=== PATIENT | male | born 1985 | race Caucasian/White ===

== ENCOUNTER 2020-03-17 06:43 | Emergency (ER) | payer MEDICAID ==
[~2020-03-17] VITALS: Ht 157.5 cm; Wt 82.5 kg
[~2020-03-17 06:43] MED LIST: GABA600T13 PO; HALO5TAB PO; IBUP-1985 PO; LORA0.5T PO; MIRT15TA PO; PRAZ2CAP2 PO; RISP0.5T3 PO
[2020-03-17 07:03] VITALS: BP 121/86
[2020-03-17] MEDS ORDERED: ketorolac trometh inj. 60 MG/2 ML VIAL IM ONE (07:05)
== END 2020-03-17 08:00 | disposition home or self-care (01) ==
LOC: ER 06:43
DX: S93.492A Sprain of other ligament of left ankle, initial encounter (principal); S70.02XA Contusion of left hip, initial encounter; J45.909 Unspecified asthma, uncomplicated; G89.29 Other chronic pain; F31.9 Bipolar disorder, unspecified; F20.9 Schizophrenia, unspecified; F17.200 Nicotine dependence, unspecified, uncomplicated; F12.90 Cannabis use, unspecified, uncomplicated; F15.90 Other stimulant use, unspecified, uncomplicated; Z98.890 Other specified postprocedural states; Z72.89 Other problems related to lifestyle; Z79.899 Other long term (current) drug therapy; M54.5 Low back pain; W18.39XA Other fall on same level, initial encounter; Y93.89 Activity, other specified; Y92.89 Other specified places as the place of occurrence of the external cause; Y99.8 Other external cause status
CPT/HCPCS: 73502; 73600; 96372; 99284; J1885

== ENCOUNTER 2025-03-04 10:59 | Emergency (ER) | payer MEDICAID ==
[~2025-03-04] VITALS: Ht 160 cm; Wt 75.0 kg
[~2025-03-04 10:59] MED LIST changes: +GABA-1405 PO; -GABA600T13 PO; +MIRT-142 PO; -MIRT15TA PO; -RISP0.5T3 PO; +RISP0.5T80 PO
[2025-03-04 11:19] VITALS: TEMP 98.7
--- NOTE | 2025-03-04 11:23 | Physician Documentation ---
History of Present Illness ~ Chief Complaint: Cough Stated Complaint: COUGH Time Seen by MD: 14:22 Primary Medical Doctor: n/a VICTORIANO This is a 40 year old male history of asthma who presents by EMS with three days of productive cough. patient reports sputum is green yellow. Patient states his symptoms started about four days ago. Patient admits to extensive smoking history and history of asthma and states he needs a new rescue inhaler or albuterol inhaler. Patient states he also has nasal congestion and sore throat and nasal discharge but denies any significant fevers or chills or body aches. He denies any chest pain or shortness of breath or abdominal pain or nausea, vomiting, diarrhea. Patient has no other concern or complaint at this time. Medication Reconciliation Allergies: Coded Allergies: No Known Allergies (Unverified , 07/13/14) Scheduled Gabapentin (Gabapentin), 1 TABLET PO DAILY, (Reported) Haloperidol (Haloperidol), 2 TAB PO DAILY, (Reported) Mirtazapine (Remeron), 1 TABLET PO HS, (Reported) Prazosin Hcl (Prazosin Hcl), 1 CAP PO HS, (Reported) Risperidone (Risperidone), 1 TABLET PO HS, (Reported) Scheduled PRN Ibuprofen (Ibuprofen), 600 MG PO TID PRN for pain, (Reported) Lorazepam* (Ativan*), 1 TAB PO TID PRN PRN for for anxiety/agitation, (Reported) Past Medical History Past Medical History: Asthma, Chronic Pain, Chronic Back Pain, Bipolar, Schizophrenia Past Surgical History: orthopedic surgeries Alcohol Use: Sober Drug Use: marijuana, methamphetamine Lives In: Home Review of Systems Constitutional: Denies: chills, fever, weakness Eyes: Denies: pain, blurred vision ENT: Denies: ear pain, nose pain, throat pain, mouth pain Respiratory: Denies: cough, shortness of breath Cardiovascular: Denies: chest pain, palpitations Gastrointestinal: Denies: abdominal pain, nausea, vomiting Genitourinary: Denies: burning, dysuria Male Genitalia: Denies: penile discharge, testicular pain Neurological: Denies: headache, dizziness Musculoskeletal: Denies: pain, swelling Integumentary: Denies: rash, lesions Allergic/Immunologic: Denies: hives, itching Hematologic/Lymphatic: Denies: no symptoms reported Psychiatric: Denies: depression, anxiety Physical Exam Vital Signs: Temperature: 98.7, Source: Temporal, Heart Rate: 106, Respiratory Rate: 20, BP: 134/89, Pulse Oximetry: 95, Weight: 75.000 Oxygen Flow Rate: 0 Physical Exam General: Awake and Alert, no acute distress. HEENT: Patient on exam does have erythema of the oropharynx with cobblestoning but no exudative tonsils. Conjunctiva pink, Sclera clear, Mucus Membranes moist. Neck: Supple without masses and tenderness. Resp: Unlabored. Lungs clear to auscultation bilaterally. I do not appreciate any rales, rhonchi, coarse breath sounds or wheezes. Heart: Regular Rate and rhythm, normal S1 and S2 without murmur, rub or gallop. Abdomen: Soft and non tender no organomegaly Extremities: No cyanosis,clubbing or edema. Skin: Warm and Dry. Progress Results/Orders Results/Orders Vital Signs 03/04/25 03/04/25 03/04/25 11:19 13:40 13:45 Temp 98.7 Pulse 106 100 Resp 20 18 18 B/P (MAP) 134/89 136/86 (103) Pulse Ox 95 98 O2 Flow Rate 0 0 EKG/XRAY/CT/US/VASC/MRI Chest X-Ray : Additional Comments Chest x-ray interpreted by myself today shows no large infiltrate, no large effusion, normal mediastinum. DIAGNOSTIC RADIOLOGY Patient: LISANDRO CHAVES II Medical Record: [id number] [facility] : 1985, Age: 40 Sex: Male Location: ER Patient Status: REG ER Service Date/Time: 03/04/251121 Ordering Physician: EDMOND LORA Exam: CHEST,TWO VIEWS EXAM: DI CHEST,TWO VIEWS CLINICAL HISTORY: COUGH COMPARISON: None TECHNIQUE: Frontal and lateral view of the chest was obtained FINDINGS: Lines and Tubes: None Lungs: Low lung volumes. Calcified nodule projects over the left lung which may represent calcified granuloma. Pleura: No effusion. No pneumothorax. Cardiomediastinal contours: Unremarkable Bones: No acute osseous abnormality. IMPRESSION: No acute cardiopulmonary disease. Electronically Signed by:JESSICA JOHN MD Date & Time: 03/04/25 1145 Dictated by: JESSICA JOHN MD Dictation date and time: 03/04/25 1136 Primary Care Provider: NO PRIMARY CARE PROVIDER cc: EDMOND LORA ~ Medical Decision Making Findings This is a 40 year old male history of asthma who presents by EMS with three days of productive cough. patient reports sputum is green yellow. Patient states his symptoms started about four days ago. Patient admits to extensive smoking history and history of asthma and states he needs a new rescue inhaler or albuterol inhaler. Patient states he also has nasal congestion and sore throat and nasal discharge but denies any significant fevers or chills or body aches. He denies any chest pain or shortness of breath or abdominal pain or nausea, vomiting, diarrhea. Patient has no other concern or complaint at this time. Chest x-ray showed no sign of pneumonia. Patient was given prescriptions for ibuprofen and Tylenol and cough medicine Tessalon Perles. Patient will follow up with primary care in 3-5 days if no better as needed sooner. Return to ED with any worsening, concerning or changing symptoms. Patient also given refill of albuterol inhaler. Departure Disposition: HOME / SELF CARE / HOMELESS Impression: Primary Impression: Cough Qualified Codes: R05.1 - Acute cough Additional Impression: URI (upper respiratory infection) Qualified Codes: J06.9 - Acute upper respiratory infection, unspecified Condition: Stable Discharge Instructions: Cough, Adult Additional Instructions: Chest x-ray showed no sign of pneumonia. Patient was given prescriptions for ibuprofen and Tylenol and cough medicine Tessalon Perles. Patient will follow up with primary care in 3-5 days if no better as needed sooner. Return to ED with any worsening, concerning or changing symptoms. Patient also given refill of albuterol inhaler. Referrals: NO PRIMARY CARE PROVIDER (PCP) Prescriptions albuterol inhaler (Pro-Air Inhaler) 8.5 Gm Inhaler 1-2 PUFFS PO Q4H PRN for shortness of breath, #1 INH Prov: NEGIN CARR 03/04/25 Benzonatate* (Benzonatate*) 100 Mg Capsule 1 CAP PO Q8H for cough for 10 Days, #30 CAP Prov: NEGIN CARR 03/04/25 Acetaminophen (Tylenol Extra Strength) 500 Mg Tablet 2 TAB PO Q6H PRN PRN for pain or fever for 7 Days, #56 TAB Prov: NEGIN CARR 03/04/25 Ibuprofen (Ibuprofen) 800 Mg Tablet 1 TAB PO Q8H for pain for 10 Days, #30 TAB 0 Refills Prov: NEGIN CARR 03/04/25 Signature Scribe Signature: No scribe Attestation: No scribe EDMOND LORA [facility] Mar 04, 2025 11:23 NEGIN CARR Mar 04, 2025 15:57
--- NOTE | 2025-03-04 11:47 | RADIOLOGY REPORT ---
EXAM: DI CHEST,TWO VIEWS CLINICAL HISTORY: COUGH COMPARISON: None TECHNIQUE: Frontal and lateral view of the chest was obtained FINDINGS: Lines and Tubes: None Lungs: Low lung volumes. Calcified nodule projects over the left lung which may represent calcified granuloma. Pleura: No effusion. No pneumothorax. Cardiomediastinal contours: Unremarkable Bones: No acute osseous abnormality. IMPRESSION: No acute cardiopulmonary disease.
[2025-03-04 13:40] VITALS: BP 136/86; PULSE 100; O2SAT 98
[2025-03-04 13:45] VITALS: RESP 18
[2025-03-04] MEDS ORDERED: ACET-1025 PO (16:15)
[2025-03-04] MEDS ORDERED: IBUP-1986 PO (16:15)
[2025-03-04] MEDS ORDERED: ALBU8HFA PO (16:15)
[2025-03-04] MEDS ORDERED: BENZ-38 PO (16:15)
== END 2025-03-04 16:28 | disposition home or self-care (01) ==
LOC: ER 11:00
DX: J06.9 Acute upper respiratory infection, unspecified (principal); F20.9 Schizophrenia, unspecified; F31.9 Bipolar disorder, unspecified; J45.909 Unspecified asthma, uncomplicated; F12.90 Cannabis use, unspecified, uncomplicated; F15.90 Other stimulant use, unspecified, uncomplicated; Z87.891 Personal history of nicotine dependence
CPT/HCPCS: 71046; 99283

== ENCOUNTER 2025-07-01 09:42 | Emergency (ER) | payer MEDICAID ==
[~2025-07-01] VITALS: Ht 157.5 cm; Wt 79.2 kg
[~2025-07-01 09:42] MED LIST changes: -IBUP-1985 PO; +IBUP-1986 PO; +IBUP600T52 PO
[2025-07-01 09:50] VITALS: TEMP 98.3
[2025-07-01 10:34] LABS: MEAN PLATELET VOLUME 7.9 FL (7.4-10.4); RED CELL DISTRIBUTION WIDTH 14.5 % (11.5-14.5)
[2025-07-01 10:38] LABS: LEUKOCYTE ESTERASE ,URINE NEGATIVE (Neg); NITRITES, URINE NEGATIVE (Neg); OCCULT BLOOD,URINE NEGATIVE (Neg)
[2025-07-01 10:39] LABS: UA COLLECTION TYPE CLN CATCH MIDSTREAM
[2025-07-01 10:46] LABS: CREATININE 0.76 MG/DL (0.60-1.10); TOTAL CARBON DIOXIDE 31.1 MMOL/L (24-32); eCRCL 102 ML/MIN; eGFR > 90 ML/MIN
--- NOTE | 2025-07-01 10:54 | Physician Documentation ---
History of Present Illness General Chief Complaint: Abdominal Pain w/vomiting Stated Complaint: STOMACH PAIN Time Seen by MD: 10:53 OK to notify your PCP?: No Primary Medical Doctor: n/a Source: patient, RN notes reviewed Mode of Arrival: POV Exam Limitations: no limitations History of Present Illness Initial Comments 40-year-old male presents complaining of increase of his chronic vomiting. Patient reports he had a hernia surgery last year and ever since has had vomiting almost daily. We will last few days vomiting has increased somewhat, which he relates getting over a sinus infection. he is requesting medication for nausea. He denies any significant abdominal pain, fever, or bloody/black stool. Medication Reconciliation Allergies: Coded Allergies: No Known Allergies (Unverified , 07/01/25) Scheduled Gabapentin (Gabapentin), 1 TABLET PO DAILY, (Reported) Haloperidol (Haloperidol), 2 TAB PO DAILY, (Reported) Ibuprofen (Ibuprofen), 1 TAB PO Q8H Ibuprofen (Ibuprofen), 1 TAB PO Q8H Ibuprofen (Ibuprofen), 1 TAB PO Q8H Mirtazapine (Remeron), 1 TABLET PO HS, (Reported) Prazosin Hcl (Prazosin Hcl), 1 CAP PO HS, (Reported) Risperidone (Risperidone), 1 TABLET PO HS, (Reported) Scheduled PRN Ibuprofen (Ibuprofen), 600 MG PO TID PRN for pain, (Reported) Lorazepam* (Ativan*), 1 TAB PO TID PRN PRN for for anxiety/agitation, (Reported) ONDANSETRON ODT 4mg tablet (Ondansetron Odt), 1 TABLET PO Q6H PRN for nausea/vomiting Past Medical History Past Medical History: Asthma, Chronic Pain, Chronic Back Pain, Bipolar, Schizophrenia Past Surgical History: orthopedic surgeries Other Past Surgical History: Hernia surgery Alcohol Use: Sober Drug Use: marijuana, methamphetamine Lives In: Home Review of Systems All Other Systems at this time: Reviewed and Negative ROS Vomiting as well as other positive symptoms as stated above, otherwise negative Physical Exam Physical Exam Vital Signs: RN Vital Signs have been reviewed: Yes, Temperature: 98.3, Source: Oral, Heart Rate: 108, Respiratory Rate: 18, BP: 131/94, Pulse Oximetry: 96, Weight: 79.200 Oxygen Flow Rate: 0 Pulse Oximetry Reflects: adequate oxygenation Physical Exam VITALS: Reviewed and as above. GENERAL: Alert, no apparent distress. HEENT: Normocephalic, atraumatic, PERRL, EOMI, dry mucosa, no erythema RESPIRATORY: Lungs clear, normal breath sounds, no respiratory distress. CHEST: No accessory muscle use, no retractions CV: Regular rate, rhythm, no edema, no murmur, No: JVD GI: Slight epigastric tenderness. Soft, bowels sounds present, no rebound, guarding, or rigidity MUSCULOSKELETAL No deformities, no edema SKIN: Warm and dry, no rash NEURO: Oriented x4, No motor or sensory deficit PSYCH: Normal mood and affect, no agitation Progress Results/Orders Reviewed/noted all lab results: Yes Results/Orders Completed Orders - OHLFS,YINKA Caldera MD Urinalysis, Cult If Indicated (07/01/25 09:55) Cbc/Diff (07/01/25 09:55) BMP (07/01/25 09:55) Lipase (07/01/25 09:55) CMP (07/01/25 09:55) Ondansetron Disint. Tablet (Zofran Odt T (07/01/25 11:20) Vital Signs 07/01/25 07/01/25 09:50 11:13 Temp 98.3 Pulse 108 85 Resp 18 17 B/P (MAP) 131/94 157/100 (119) Pulse Ox 96 99 O2 Flow Rate 0 Laboratory Tests Test 07/01/25 10:00 07/01/25 10:20 07/01/25 10:26 Urine Specimen Description Cln catch midstream Urine Color Yellow Urine Clarity Clear Urine pH 6.5 Urine Specific [place] 1.015 Urine Protein Negative Urine Glucose (UA) Negative Urine Ketones Negative Urine Occult Blood Negative Urine Nitrite Negative Urine Bilirubin Negative Urine Urobilinogen 0.2 Urine Leukocyte Esterase Negative Urine Culture Indicated Not ind Volume Urine Centrifuged 10 ml Urine Comment White Blood Count 6.1 Red Blood Count 5.03 Hemoglobin 16.1 Hematocrit 46.7 Mean Corpuscular Volume 92.8 Mean Corpuscular Hemoglobin 32.0 H Mean Corpuscular Hemoglobin Concent 34.5 Red Cell Distribution Width 14.5 Platelet Count 282 Mean Platelet Volume 7.9 Neutrophils (%) (Auto) 65.8 Lymphocytes (%) (Auto) 23.1 Monocytes (%) (Auto) 8.7 Eosinophils (%) (Auto) 1.4 Basophils (%) (Auto) 1.0 Neutrophils # (Auto) 4.0 Lymphocytes # (Auto) 1.4 Monocytes # (Auto) 0.5 Eosinophils # (Auto) 0.1 Basophils # (Auto) 0.1 CBC Comment Sodium Level 136 Potassium Level 4.1 Chloride Level 100 Carbon Dioxide Level 31.1 Anion Gap 5 L Blood Urea Nitrogen 14 Creatinine 0.76 Estimated GFR/1.73 m2 > 90 BUN/Creatinine Ratio 18.4 Glucose Level 92 Calcium Level 8.6 Total Bilirubin 0.4 Aspartate Amino Transf (AST/SGOT) 29 Alanine Aminotransferase (ALT/SGPT) 44 Alkaline Phosphatase 96 Total Protein 7.3 Albumin 3.8 Globulin 3.5 Albumin/Globulin Ratio 1.1 Lipase 24 Chemistry Comments Medical Decision Making Additional information obtaine: old records (Seen in February for cough) Findings 40-year-old male with nausea vomiting and abdominal pain patient was treated with a cocktail of medications and IV fluids with improvement of his symptoms. Prior hospitalizations has been reviewed. The pulse the patient's pulse oximetry was interpreted as normal and adequate. The patient's cardiac cath rn was interpreted as a sinus rhythm. The patient had improvement after treatment the patient will be discharged and advised to return for worsening of the symptoms Differential Diagnosis Gastritis cholecystitis enteritis peptic ulcer disease Departure Time of Disposition: 11:21 Disposition: 01 HOME / SELF CARE / HOMELESS Impression: Primary Impression: Nausea & vomiting Qualified Codes: R11.2 - Nausea with vomiting, unspecified Condition: Stable Discharge Instructions: Nausea and Vomiting, Adult, [id number] Additional Instructions: Zofran as prescribed. Follow up with your regular doctor and surgeon. Return to the ER for other concerns. Prescriptions ONDANSETRON ODT 4mg tablet (ONDANSETRON ODT) 4 Mg Tab.rapdis 1 TABLET PO Q6H PRN for nausea/vomiting, #28 TABLET Prov: YINKA DHALIWAL MD 07/01/25 Education Educated: Patient Educated regarding: diagnosis, treatment, need for follow up Signature Scribe Signature: Scribed for Yinka Dhaliwal MD by Ronald Berumen . 07/01/25 11:22 Attestation: The note accurately reflects work and decisions made by me.Yinka Dhaliwal MD 07/03/25 09:47 YINKA DHALIWAL MD Jul 01, 2025 10:54 RONALD MCCULLOUGH Jul 01, 2025 11:24
[2025-07-01 11:13] VITALS: BP 157/100; PULSE 85; RESP 17; O2SAT 99
[2025-07-01] MEDS ORDERED: ONDA-243 PO (11:21)
[2025-07-01] MEDS: ondansetron 4mg rapidly disintigrating tab PO ONE (11:23)
== END 2025-07-01 11:30 | disposition home or self-care (01) ==
LOC: ER 09:42
DX: R11.2 Nausea with vomiting, unspecified (principal); F20.9 Schizophrenia, unspecified; F31.9 Bipolar disorder, unspecified; G89.29 Other chronic pain; J45.909 Unspecified asthma, uncomplicated; F12.90 Cannabis use, unspecified, uncomplicated; F15.90 Other stimulant use, unspecified, uncomplicated; Z98.890 Other specified postprocedural states; Z79.899 Other long term (current) drug therapy
CPT/HCPCS: 36415; 80053; 81003; 83690; 85025; 99284